=== PATIENT | female | born 1970 | race Caucasian/White ===

== ENCOUNTER → 2016-06-25 | Outpatient (CLI) | payer OTHER ==
[~2016-06-25] MED LIST: ACETAMINOPHEN &1 TA1 PO; ASPIRIN EC325 MG PO; FAMOTIDINE20 MG PO; HYDROCODONE BIT1 T39 PO; HYDROCODONE-APA1 TA2 PO; LEADER ALL DAY PO; MULTI VITAMINS1 TA1 PO; PERCOCET1 TAB PO; PRAVASTATIN 40M40 MG PO; RESTORIL 30MG C30 MG PO; SYNTHROID0.088 MG PO; VITAMIN C500 M1 PO; [UNRECOGNIZED DRUG - OTHER] PO
--- NOTE | 2016-06-26 10:01 | RADIOLOGY REPORT PS360 ---
MRI-L-SPINE W/O, MRI-3D RENDERING/MYELOGRAM HISTORY: Low back pain with bilateral leg numbness and weakness WORSENING LUMBAR PAIN COMPARISON: 12/08/2010 TECHNIQUE: Standard multiplanar multiecho sequences are performed without contrast. 3-D MIP and myelographic images are also rendered and reviewed FINDINGS: Spinal cord ends at the L1 level. T11-T12: Mild degenerative disc disease with mild facet hypertrophic change. T12-L1, L1-L2, L2-L3, L3-L4, and L4-L5 disc spaces are unremarkable. There is some mild generalized facet hypertrophic change at L4-5. No significant foraminal narrowing apparent. Mild degenerative disc disease at L5-S1 with 6 mm anterolisthesis of L5 on S1 with bulging disc and bilateral foraminal narrowing slightly greater on the left. No disc herniation or other significant anomalies evident. IMPRESSION: 1. Mild degenerative disc disease L5-S1 with 6 mm anterolisthesis of L5 with mild bulging disc and mild bilateral foraminal narrowing slightly greater on the left 2. No canal stenosis or disc herniation evident.
== END ==
LOC: RAD 08:00
DX: M54.5 Low back pain (principal)

== ENCOUNTER → 2017-03-11 | Outpatient (CLI) | payer OTHER ==
[~2017-03-11] MED LIST changes: +ALIGN10.5 MG PO; +DEMADEX20 MG PO
--- NOTE | 2017-03-12 04:44 | RADIOLOGY REPORT PS360 ---
EXAM: LUMBAR SPINE 5 VIEWS HISTORY: Low back pain LUMBAR NEURALGIA ORDERING PHYSICIAN: Stevie Ghosh MD PATIENT AGE: 46 years COMPARISON: None FINDINGS: Minimal levoscoliosis. No acute fracture or dislocation. There is mild spondylolisthesis of L5 on S1 with mild degenerative disc disease at that level. There is 5 mm anterolisthesis of L5. No lytic or blastic change. There are bilateral tubal occlusion device is present and there are surgical clips in the right upper quadrant. IMPRESSION: Mild spondylolisthesis of L5 on S1 with degenerative disc disease at that level
== END ==
LOC: RAD 15:09
DX: M54.16 Radiculopathy, lumbar region (principal)

== ENCOUNTER → 2017-03-29 | Day surgery (SDC) | payer OTHER ==
[~2017-03-29] VITALS: Ht 167.6 cm; Wt 121.6 kg
[2017-03-29 09:38] VITALS: BP 139/76
[2017-03-29 09:51] VITALS: BP 139/76
[2017-03-29 09:54] VITALS: BP 147/97
--- NOTE | 2017-03-29 10:06 | Procedure Note ---
Procedure detail Date of procedure: 03/29/17 Anesthesiologist: Claude Orta M.D. Complications: None Pre-procedure diagnosis: Degenerative disc disease of lumbar spine with lumbar radiculopathy symptoms Post-procedure diagnosis: Same Indications for procedure: This patient is a pleasant 46-year-old obese female who we are seeing for low back pain with lumbar radiculopathy symptoms. She primarily complains of low back pain radiating to her LEFT hip and LEFT leg. MRI does show degenerative changes with bulging disc at L5-S1. We will do a lumbar epidural steroid injection today to see if this will give her some benefit. She also continues on her [place] 10 mg 4 times a day. Procedure detail: Procedure: Lumbar epidural steroid injection under fluoroscopy Informed consent was obtained and the risks and benefits of the procedure were explained to the patient. The patient was taken to the procedure room and noninvasive monitors placed, including noninvasive blood pressure cuff and pulse oximeter. The back was viewed using C-arm Fluoroscopy and prepped using Betadine as a cleansing solution and the L5-S1 interspace was palpated. Skin and subcutaneous tissues were anesthetized using lidocaine 1.5% and a 25-gauge needle. After this, an 18-gauge Touhy epidural needle was placed into the L5-S1 interspace and advanced using fluoroscopic guidance and loss of resistance to air until the epidural space was encountered. After confirmation of needle placement in the epidural space, with dye, a solution containing lidocaine 1.5%, 4 mL and Depo-Medrol 80 mg were incrementally injected into the lumbar epidural space. The patient tolerated the procedure well with no complications. The patient was observed in the Pain Clinic and then discharged home neurologically intact. Plan and disposition: We will follow up with her in 2 weeks. We will reevaluate her symptoms at that time. at 1009
[2017-03-29 10:15] VITALS: BP 125/76
== END ==
LOC: PM 09:28
PROC: 3E0R3BZ Introduction of Anesthetic Agent into Spinal Canal, Percutaneous Approach (ICD-10-PCS; principal; 2017-03-29)
PROC: 3E0R33Z Introduction of Anti-inflammatory into Spinal Canal, Percutaneous Approach (ICD-10-PCS; 2017-03-29)
DX: M51.16 Intervertebral disc disorders with radiculopathy, lumbar region (principal)
CPT/HCPCS: J1040; Q9966

== ENCOUNTER → 2017-04-24 | Outpatient (CLI) | payer OTHER ==
--- NOTE | 2017-04-24 08:23 | CARDIOVASCULAR REPORT ---
"Cerebrovascular Exam IMPRESSIONS 1. The bilateral vertebral arteries are patent with normal antegrade flow. 2. Study suggests less than 20% stenosis involving the right internal carotid artery and the left internal carotid artery. History: Memory loss. Chronic pain syndrome. HTN. Vision disturbance right eye Carotid duplex study. Complete study and Doppler flow study including spectral analysis, color and cummins scale imaging. Height: Height: 167.6cm. Height: 66in. Weight: Weight: 122.5kg. Weight: 269.4lb. Body mass index: BMI: 43.6kg/m^2. Body surface area: BSA: 2.45m^2. Location: Vascular laboratory. Patient status: Outpatient. Tables: Arterial flow: + +--------+--------+ |Location |V sys |V ed | + +--------+--------+ |Right CCA - proximal|84.1cm/s|21.2cm/s| + +--------+--------+ |Right CCA - distal |61.3cm/s|25.9cm/s| + +--------+--------+ |Right ECA |114cm/s |--------| + +--------+--------+ |Right ICA - proximal|55.8cm/s|21.2cm/s| + +--------+--------+ |Right ICA - mid |112cm/s |47.1cm/s| + +--------+--------+ |Right ICA - distal |110cm/s |47.1cm/s| + +--------+--------+ |Right vertebral |51.9cm/s|--------| + +--------+--------+ |Left CCA - proximal |105cm/s |24.4cm/s| + +--------+--------+ |Left CCA - distal |85.6cm/s|28.3cm/s| + +--------+--------+ |Left ECA |97.4cm/s|63.6cm/s| + +--------+--------+ |Left ICA - proximal |84.1cm/s|33cm/s | + +--------+--------+ |Left ICA - mid |114cm/s |47.9cm/s| + +--------+--------+ |Left ICA - distal |122cm/s |48.7cm/s| + +--------+--------+ |Left vertebral |50.3cm/s|--------| + +--------+--------+ Velocity ratios: + + + + + + | |Right, V sys|Right, V ed|Left, V sys|Left, V ed| + + + + + + |Max ICA/dist CCA|1.83 |1.82 |1.43 |1.72 | + + + + + + (Report amended ) Electronically signed by: Salo Morelos [id number]"
== END ==
LOC: RT 07:50
DX: G89.4 Chronic pain syndrome (principal); G47.33 Obstructive sleep apnea (adult) (pediatric); I10 Essential (primary) hypertension; R51 Headache; H54.61 Unqualified visual loss, right eye, normal vision left eye